=== PATIENT | male | born 2000 | race Caucasian/White ===

== ENCOUNTER 2024-04-21 23:07 | Emergency (ER) | payer OTHER, SELFPAY ==
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
[2024-04-21 23:10] VITALS: BP 147/92; PULSE 103; RESP 18; TEMP 36.4; O2SAT 98
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
[2024-04-22 00:07] LABS: Basophils Absolute Auto 0.04 K/mm3 (0.00-0.10); Basophils Percent Auto 0.3 % (0.0-1.0); Eosinophils Absolute Auto 0.14 K/mm3 (0.02-0.50); Eosinophils Percent Auto 1.1 % (1.0-6.0); Hematocrit 47.2 % (40.0-54.0); Hemoglobin 16.2 g/dL (14.0-18.0); Immature Granulocyte Absolute 0.06 K/mm3 (0.00-0.00); Immature Granulocyte Percent A 0.5 % (0.0-0.0); Lymphocytes Percent Auto 7.8 % (18.0-42.0); Mean Corpuscular HGB Conc 34.3 g/dL (32-36); Mean Corpuscular Hemoglobin 32.2 pg (27.0-31.0); Mean Corpuscular Volume 93.8 fL (78.0-102.0); Mean Platelet Volume 8.7 fl (8.7-11.0); Monocytes Absolute Auto 0.77 K/mm3 (0.10-0.90); Neutrophils Absolute Auto 10.78 K/mm3 (1.70-7.20); Neutrophils Percent Auto 84.3 % (50.0-70.0); Platelet Count Result 282 K/mm3 (150-420); Red Blood Count 5.03 M/mm3 (4.70-6.10); Red Cell Distribution Width 12.9 % (11.6-14.4); White Blood Count 12.8 K/mm3 (4.8-10.8)
[2024-04-22 00:21] LABS: Partial Thromboplastin Time 23.4 Sec (23.9-30.70); Prothrombin Time 10.9 Seconds (9.50-12.1)
[2024-04-22 00:29] LABS: Alanine Aminotransferase 44 U/L (16-63); Albumin Level 4.1 g/dL (3.4-5.0); Alkaline Phosphatase 64 U/L (46-116); Anion Gap 10 mmol/L (4-12); Aspartate Amino Transferase 29 U/L (15-37); Bilirubin,Total 0.6 mg/dL (0.00-1.00); Blood Urea Nitrogen 22 mg/dL (7-18); Calcium 9.1 mg/dL (8.5-10.1); Carbon Dioxide 28 mmol/L (21-32); Chloride 101 mmol/L (98-108); Estimated CRCL calculation 163 ml/min; Estimated Glomerular Filt Rate > 60; Glucose 103 mg/dL (70-99); Lipase 27 U/L (16-77); Osmolality Calculated 291 mOsm/kg (285-295); Potassium 3.8 mmol/L (3.5-5.1); Sodium 139 mmol/L (136-145); Total Protein 7.6 g/dL (6.4-8.2)
[2024-04-22 01:05] VITALS: BP 153/86; PULSE 81; RESP 18; TEMP 35.8; O2SAT 97
== END 2024-04-22 01:06 ==
PROVIDERS: Emergency Provider Internal Medicine Critical Care Medicine
DX: S00.81XA Abrasion of other part of head, initial encounter (principal); M79.652 Pain in left thigh; R07.89 Other chest pain; V89.2XXA Person injured in unspecified motor-vehicle accident, traffic, initial encounter
CPT/HCPCS: 36415; 70450; 71250; 72125; 73552; 74176; 80053; 83690; 85025; 85610; 85730; 99284; L0150